=== PATIENT | male | born 1990 | race Caucasian/White ===

== ENCOUNTER → 2017-03-11 | Outpatient (REF) | payer OTHER | LOC: M LAB REF 09:10 | DX: J02.9 Acute pharyngitis, unspecified (principal) ==

== ENCOUNTER → 2018-06-20 | Outpatient (REF) | payer OTHER | LOC: M LAB REF 12:09 | PROVIDERS: ATTEND Physician Assistant | DX: J00 Acute nasopharyngitis [common cold] (principal) ==

== ENCOUNTER → 2024-09-29 | Day surgery (SDC) | payer BC, OTHER ==
[~2024-09-29] VITALS: Ht 185.4 cm; Wt 96.1 kg
[~2024-09-29] MED LIST: HOME MED LIST COMPLETE! XX SCH; HYDROmorphone HCL 2 MG/ML 1 ML VIAL As Ordered ONE; KETOROLAC 30 MG/ML 1 ML VIAL As Ordered ONE; LIDOCAINE 2% 100 MG/5 ML SDV (FOR ANES.) As Ordered ONE; MIDAZOLAM INJ 2 MG/2 ML VIAL As Ordered ONE; NS (Normal Saline) 0.9% 1,000 ML IV ONE; ONDANSETRON 4MG 2ML VIAL As Ordered ONE; OXYC1TAB23 PO; ROCURONIUM BROMIDE 50MG/5ML VIAL As Ordered ONE; SUCCINYLCHOLINE 100MG/5ML SYRINGE As Ordered ONE; SUGAMMADEX SODIUM 500 MG/5 ML VIAL As Ordered ONE; dexAMETHasone 4 MG/ML 1 ML VIAL As Ordered ONE
[2024-09-29 08:53] LABS: BASO # 0.0 10^3/uL (0.0-0.2); BASO % 0.2 % (0.0-1.0); EOS # 0.1 10^3/uL (0.0-0.5); EOS % 0.5 % (0.0-3.0); LYMPH # 1.4 10^3/uL (1.5-5.0); LYMPH % 11.3 % (24.0-44.0); MONO # 1.1 10^3/uL (0.0-0.8); MONO % 8.6 % (2.0-8.0); NEUTROPHILS # 9.9 10^3/uL (1.5-8.5); NEUTROPHILS % 79.1 % (36.0-66.0); PLATELET COUNT, AUTOMATED 223 10^3/uL (150-450)
[2024-09-29 08:57] LABS: KETONE, URINE AUTO RFX NEGATIVE (NEGATIVE); LEUKOCYTE ESTERASE UR AUTO RFX NEGATIVE (NEGATIVE); MUCUS, URINE RFX SMALL (NEGATIVE); NITRITE, URINE AUTO RFX NEGATIVE (NEGATIVE); RBC, URINE AUTO RFX 0 /HPF (0-3); SQUAM EPITHELIAL CELL UR AURFX 0 /HPF (0-6); WBC, URINE AUTO RFX 1 /HPF (0-3)
[2024-09-29 09:06] LABS: ERYTHROCYTE SEDIMENTATION RATE 4 mm/hr (0-15)
[2024-09-29 09:20] LABS: ALT/SGPT 33.0 U/L (7.0-40); AST/SGOT 22.0 U/L (<34); C REACTIVE PROTEIN QUANTITATIV 1.07 MG/DL (<1.0); CALCIUM LEVEL 9.5 MG/DL (8.5-10.1); CARBON DIOXIDE LEVEL 26.0 MMOL/L (20-31); CHLORIDE LEVEL 103.0 MMOL/L (98-107); CREATININE FOR GFR 1.18 MG/DL (0.70-1.30); GLOMERULAR FILTRATION RATE 83.0 (>60); POTASSIUM SERUM 4.3 MMOL/L (3.5-5.1); SODIUM LEVEL 141.0 MMOL/L (136-145)
[2024-09-29] MEDS: PIPERACILLIN/TAZOBACTAM SOD 3.375 GM in DEXTROSE 5% (D5W) ADV/MINI-BAG 50 ML IV ONE (11:46)
[2024-09-29] MEDS: LR 1,000 ML IV SCH (11:46)
[2024-09-29] MEDS: ZOSYN 3.375GM VIAL As Ordered ONE (18:20)
[2024-09-29] MEDS: LIDOCAINE 1% SDV 30 ML VIAL As Ordered ONE (18:40)
[2024-09-29 19:35] VITALS: TEMP 98.2
[2024-09-29 20:00] VITALS: BP 121/70; O2SAT 99
== END | disposition home or self-care (01) ==
LOC: M ED 07:10 → M SDC 10:47
PROVIDERS: ATTEND Surgery
DX: K35.80 Unspecified acute appendicitis (principal)
CPT/HCPCS: 44970; 74177; 80053; 81001; 83605; 83690; 85025; 85652; 86140; 88304; 93041; 94760; 99285; J0330; J0665; J1100; J1171; J1885; J2250; J2405; J2543; J3010